=== PATIENT | female | born 2000 | race Caucasian/White ===

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

== ENCOUNTER 2020-01-01 00:24 | Emergency (ER) | payer MEDICAID ==
[~2020-01-01] VITALS: Ht 149.9 cm; Wt 42.7 kg
[2020-01-01] MEDS ORDERED: KETOROLAC 30MG/ML VIAL IV STA (00:50)
[2020-01-01] MEDS ORDERED: SODIUM CHLORIDE 0.9% 1,000 ML IV ONE (00:50)
[2020-01-01] MEDS ORDERED: VISCOUS LIDOCAINE 2% 15 ML UDC PO ONE (01:00)
[2020-01-01] MEDS ORDERED: MAGNESIUM/ALUMINUM HYDROXIDE/SIMETHICONE 30ML UDC PO ONE ×2 (01:00→03:30)
[2020-01-01] MEDS ORDERED: FAMOTIDINE 20MG/2ML VIAL IV ONE (01:00)
[2020-01-01] MEDS ORDERED: ONDANSETRON HCL 4MG/2ML INJ IV ONE (01:00)
[2020-01-01 01:41] LABS: HEMATOCRIT. 39.5 % (36.0-48.0); HEMOGLOBIN. 13.6 g/dL (12.0-16.0); MEAN CORPUSCULAR HEMOGLOBIN 32.6 pg (28.0-32.0); MEAN CORPUSCULAR VOLUME 94.9 fL (81.0-99.0); MEAN PLATELET VOLUME 7.3 fl (7.4-10.4); PLATELET 236 x1000/uL (130-400); RED BLOOD CELL COUNT 4.16 mill/uL (4.2-5.4); RED CELL DISTRIBUTION WIDTH 13.3 % (11.6-14.6)
[2020-01-01 01:46] LABS: CHLORIDE 104 mEq/L (98-107)
[2020-01-01 01:55] LABS: INR 1.1; PROTHROMBIN TIME 11.6 sec (9.6-11.0)
[2020-01-01 02:02] LABS: HCG SCREEN NEGATIVE
[2020-01-01 02:20] LABS: PLATELET ESTIMATE NORMAL
[2020-01-01 02:37] LABS: CLARITY URINE CLEAR (CLEAR); COLOR URINE YELLOW (YELLOW); KETONES URINE TRACE (NEGATIVE); LEUKOCYTE ESTERASE URINE TRACE (NEGATIVE); NITRITE URINE NEGATIVE (NEGATIVE); OCCULT BLOOD URINE NEGATIVE (NEGATIVE); PH URINE >=9.0 (4.5-8.0); PROTEIN URINE TRACE (NEGATIVE); SPECIFIC GRAVITY URINE 1.022 (1.005-1.030)
[2020-01-01] MEDS ORDERED: ACETAMINOPHEN 325MG TABLET PO STA (03:48)
[2020-01-01] MEDS ORDERED: ONDANSETRON HCL 4MG/2ML INJ IV STA (03:48)
[2020-01-01 05:07] VITALS: BP 104/51
== END 2020-01-01 05:09 | disposition home or self-care (01) ==
LOC: ER 00:24
DX: K29.71 Gastritis, unspecified, with bleeding (principal); R10.13 Epigastric pain
CPT/HCPCS: 36415; 80053; 81003; 81025; 83690; 84703; 85025; 85610; 96361; 96374; 96375; 96376; 99284; J1885; J2405; J3490; J7030